=== PATIENT | female | born 2000 | race Caucasian/White ===

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

== ENCOUNTER 2021-08-05 17:48 | Emergency (ER) | payer OTHER ==
[~2021-08-05] VITALS: Wt 61.2 kg
[~2021-08-05 17:48] MED LIST: BENADRYL25 M2 PO; ELIMITE 5%60 GM T; PREDNISONE20 M1 PO
== END 2021-08-05 18:50 | disposition home or self-care (01) ==
LOC: ED 17:48
DX: O9A.213 Injury, poisoning and certain other consequences of external causes complicating pregnancy, third trimester (principal); S09.91XA Unspecified injury of ear, initial encounter; Z3A.37 37 weeks gestation of pregnancy; Y08.89XA Assault by other specified means, initial encounter; Y93.89 Activity, other specified; Y92.89 Other specified places as the place of occurrence of the external cause; Y99.8 Other external cause status

== ENCOUNTER 2022-12-13 21:02 | Emergency (ER) | payer OTHER ==
[~2022-12-13] VITALS: Ht 157.5 cm; Wt 45.4 kg
[2022-12-13 21:28] LABS: BILIRUBIN Negative (Negative); BLOOD Negative (Negative); CLARITY Clear (Clear); COLOR Yellow (Yellow); GLUCOSE Negative (Negative); KETONE Negative (Negative); LEUKO ESTERASE 1+ (Negative); NITRITE Negative (Negative); SPECIFIC GRAVITY 1.015 (1.001-1.030)
[2022-12-13 21:34] LABS: BACTERIA 1+
[2022-12-13] MEDS ORDERED: CIPRO500 MG PO (21:49)
== END 2022-12-13 22:23 | disposition home or self-care (01) ==
LOC: ED 21:02
PROVIDERS: Internal Medicine
DX: N39.0 Urinary tract infection, site not specified (principal); R42 Dizziness and giddiness

== ENCOUNTER → 2023-02-22 | Emergency (ER) | payer OTHER ==
[~2023-02-22] VITALS: Ht 157.4 cm; Wt 45.4 kg
[~2023-02-22] MED LIST changes: +CIPRO500 MG PO
== END ==
LOC: ED 18:18
DX: R05.9 Cough, unspecified (principal); R11.10 Vomiting, unspecified; R51.9 Headache, unspecified; R09.81 Nasal congestion; Z53.21 Procedure and treatment not carried out due to patient leaving prior to being seen by health care provider